=== PATIENT | female | born 1955 | race Hispanic/Latino ===

== ENCOUNTER → 2022-12-21 | Outpatient (CLI) | payer OTHER, MEDICARE ==
[~2022-12-21] MED LIST: GADOTERATE MEGLUMINE 10 MMOL/20 ML VIAL IV ONE
== END | disposition home or self-care (01) ==
LOC: RAH 09:25
PROVIDERS: ATTEND Internal Medicine Gastroenterology
DX: K74.60 Unspecified cirrhosis of liver (principal); R77.2 Abnormality of alphafetoprotein
CPT/HCPCS: 74183; A9575

== ENCOUNTER → 2023-01-14 | Outpatient (CLI) | payer OTHER, MEDICARE ==
[2023-01-14 11:46] LABS: BASOPHILS % (AUTO) 0.5 % (0.0-5.0); EOSINOPHILS % (AUTO) 2.6 % (0.0-8.0); HEMATOCRIT 26.5 % (36-48); LYMPHOCYTES % (AUTO) 29.7 % (21.0-51.0); MEAN CORPUSCULAR HEMOGLOBIN 28.5 pg (27.0-33.0); MEAN CORPUSCULAR HGB CONC 31.7 g/dL (32.0-36.0); MEAN CORPUSCULAR VOLUME 89.8 fL (79-99); MONOCYTES % (AUTO) 8.4 % (3.0-13.0); NEUTROPHILS % (AUTO) 58.5 % (40.0-77.0); PLATELET COUNT (AUTO) 169 K/uL (130-400); RED BLOOD CELL COUNT(AUTO) 2.95 MIL/uL (4.00-5.50); RED CELL DISTRIBUTION WIDTH 16.1 % (11.0-15.5); WHITE BLOOD COUNT (AUTO) 6.6 K/uL (4.8-10.8)
[2023-01-14 11:59] LABS: INR 1.15 (0.85-1.15); PROTHROMBIN TIME 12.4 SEC (9.6-11.6)
[2023-01-14 12:00] LABS: PARTIAL THROMBOPLASTIN TIME 27.4 SEC (26.3-35.5)
[2023-01-14 12:02] LABS: ALBUMIN 3.2 g/dL (3.5-5.0); CREATININE 1.1 mg/dL (0.5-1.5); POTASSIUM 3.8 mmol/L (3.5-5.1); TOTAL PROTEIN, SERUM 7.1 g/dL (6.0-8.3)
== END | disposition home or self-care (01) ==
LOC: LAB 11:18
PROVIDERS: ATTEND Internal Medicine Gastroenterology
DX: K74.60 Unspecified cirrhosis of liver (principal); R77.2 Abnormality of alphafetoprotein; R93.2 Abnormal findings on diagnostic imaging of liver and biliary tract
CPT/HCPCS: 36415; 80053; 82105; 85025; 85610; 85730

== ENCOUNTER → 2023-01-18 | Outpatient (CLI) | payer OTHER, MEDICARE ==
[~2023-01-18] MED LIST changes: -GADOTERATE MEGLUMINE 10 MMOL/20 ML VIAL IV ONE; +IOHEXOL-350 75 ML VIAL IV ONE
== END | disposition home or self-care (01) ==
LOC: RAH 07:33
PROVIDERS: ATTEND Internal Medicine Gastroenterology
DX: K74.60 Unspecified cirrhosis of liver (principal); R77.2 Abnormality of alphafetoprotein; R93.2 Abnormal findings on diagnostic imaging of liver and biliary tract
CPT/HCPCS: 74170; Q9967

== ENCOUNTER → 2023-04-02 | Outpatient (CLI) | payer OTHER, MEDICARE ==
[~2023-04-02] MED LIST changes: +GADOTERATE MEGLUMINE 10 MMOL/20 ML VIAL IV ONE; -IOHEXOL-350 75 ML VIAL IV ONE
== END | disposition home or self-care (01) ==
LOC: CANPRECLI → RAH 09:53
PROVIDERS: ATTEND Internal Medicine Gastroenterology
DX: K74.60 Unspecified cirrhosis of liver (principal); R93.2 Abnormal findings on diagnostic imaging of liver and biliary tract
CPT/HCPCS: 74183; A9575

== ENCOUNTER → 2023-06-26 | Outpatient (CLI) | payer OTHER, MEDICARE | END | disposition home or self-care (01) | LOC: RAH 09:39 | PROVIDERS: ATTEND Internal Medicine Gastroenterology | DX: K76.89 Other specified diseases of liver (principal); R93.2 Abnormal findings on diagnostic imaging of liver and biliary tract; K74.60 Unspecified cirrhosis of liver | CPT/HCPCS: 74183; A9575; S8037 ==

== ENCOUNTER 2023-07-06 05:20 | Observation (INO) | payer OTHER, MEDICARE ==
[~2023-07-06] VITALS: Ht 144.8 cm; Wt 60.3 kg
[2023-07-06 06:03] LABS: BASOPHILS # (AUTO) 0.02 K/uL (0.00-0.20); BASOPHILS % (AUTO) 0.3 % (0.0-5.0); EOSINOPHILS # (AUTO) 0.17 K/uL (0.00-0.70); EOSINOPHILS % (AUTO) 2.8 % (0.0-8.0); HEMATOCRIT 38.3 % (36-48); IMMATURE GRANULOCYTE ABSOLUTE 0.02 K/uL (0-1); LYMPHOCYTES # (AUTO) 1.9 K/uL (1.0-4.8); LYMPHOCYTES % (AUTO) 31.2 % (21.0-51.0); MEAN CORPUSCULAR HEMOGLOBIN 30.1 pg (27.0-33.0); MEAN CORPUSCULAR HGB CONC 33.4 g/dL (32.0-36.0); MEAN CORPUSCULAR VOLUME 90.1 fL (79-99); MONOCYTES # (AUTO) 0.6 K/uL (0.1-1.0); NEUTROPHILS # (AUTO) 3.5 K/uL (1.8-7.7); NEUTROPHILS % (AUTO) 56.4 % (40.0-77.0); PLATELET COUNT (AUTO) 137 K/uL (130-400); RED BLOOD CELL COUNT(AUTO) 4.25 MIL/uL (4.00-5.50); RED CELL DISTRIBUTION WIDTH 14.6 % (11.0-15.5); WHITE BLOOD COUNT (AUTO) 6.1 K/uL (4.8-10.8)
[2023-07-06 06:04] LABS: ADD UA MICROSCOPIC NO; APPEARANCE,URINE CLEAR (CLEAR); BILIRUBIN,URINE NEGATIVE (NEGATIVE); COLOR,URINE LIGHT-YELLOW (YELLOW); GLUCOSE, URINE (UA) NEGATIVE (NEGATIVE); KETONES,URINE NEGATIVE (NEGATIVE); LEUKOCYTE ESTERASE ,URINE NEGATIVE Leu/uL (NEGATIVE); NITRATE,URINE NEGATIVE (NEGATIVE); OCCULT BLOOD,URINE NEGATIVE (NEGATIVE); PROTEIN,URINE NEGATIVE (NEGATIVE); UROBILINOGEN,URINE 0.2 mg/dL (0.2-1.0)
[2023-07-06 06:15] LABS: POTASSIUM 3.3 mmol/L (3.5-5.1)
[2023-07-06 06:17] LABS: SARS-CoV-2, RNA, NAAT NEGATIVE SARS CoV-2 (NEGATIVE)
[2023-07-06 06:21] LABS: AMPHET/METH SCREEN,URINE NEGATIVE (NEGATIVE); BARBITURATE SCREEN, URINE NEGATIVE (NEGATIVE); BENZODIAZEPINES SCREEN,URINE NEGATIVE (NEGATIVE); CANNABINOID SCREEN,URINE NEGATIVE (NEGATIVE); COCAINE SCREEN,URINE NEGATIVE (NEGATIVE); OPIATE SCREEN,URINE NEGATIVE (NEGATIVE); PHENCYCLIDINE SCREEN,URINE NEGATIVE (NEGATIVE)
[2023-07-06 06:22] LABS: INFLUENZA TYPE A Negative For Type A (NEGATIVE); INFLUENZA TYPE B Negative For Type B (NEGATIVE)
[2023-07-06 06:25] LABS: ALBUMIN 3.3 g/dL (3.5-5.0); BILIRUBIN,TOTAL 1.9 mg/dL (0.2-1.0); TOTAL PROTEIN, SERUM 7.7 g/dL (6.0-8.3)
[2023-07-06] MEDS ORDERED: LACTULOSE 20 GM/30 ML UDCUP PO ONE (07:30)
[2023-07-06] MEDS ORDERED: POTASSIUM BICARB/CIT AC 25 MEQ TABLET.EFF PO ONE (07:30)
[2023-07-06] MEDS ORDERED: MAGNESIUM 2GM PREMIX 50ML 50 ML IV PRN (08:30)
[2023-07-06] MEDS ORDERED: ONDANSETRON 4MG INJ IV PRN (08:30)
[2023-07-06] MEDS ORDERED: POTASSIUM CHLORIDE 10% ELIXIR 20 MEQ/15 ML UDCUP PO PRN (08:30)
[2023-07-06] MEDS ORDERED: MORPHINE 2 MG SYG IVP PRN (08:30)
[2023-07-06] MEDS ORDERED: ACETAMINOPHEN 325 MG TAB PO PRN ×2 (08:30)
[2023-07-06] MEDS ORDERED: GLUCAGON 1MG KIT 1 MG ML IM PRN (08:30)
[2023-07-06] MEDS ORDERED: DEXTROSE 50%-WATER 50 ML DISP.SYRIN IV PRN (08:30)
[2023-07-06] MEDS ORDERED: FAMOTIDINE 20MG TAB PO SCH ×2 (09:00→21:00)
[2023-07-06] MEDS: LACTULOSE 20 GM/30 ML UDCUP PO SCH ×3 (09:00→20:58)
[2023-07-06] MEDS ORDERED: ONDANSETRON 4MG INJ IVP ONE (09:00)
[2023-07-06] MEDS ORDERED: FAMO40TA7 PO (09:10)
[2023-07-06] MEDS ORDERED: LACT10SO9 PO (09:11)
[2023-07-06] MEDS ORDERED: LEVO75CA5 PO (09:12)
[2023-07-06] MEDS ORDERED: LOSA1TAB42 PO (09:12)
[2023-07-06] MEDS ORDERED: [UNRECOGNIZED DRUG - REMARK] PO (09:14)
[2023-07-06] MEDS ORDERED: SUCR1ORA15 PO (09:16)
[2023-07-06 09:41] LABS: INR 1.25 (0.85-1.15); PROTHROMBIN TIME 14.3 SEC (9.6-11.6)
[2023-07-06 09:42] LABS: PARTIAL THROMBOPLASTIN TIME 31.4 SEC (26.3-35.5)
[2023-07-06] MEDS: 0.9%NACL 1000ML 1,000 ML IV SCH ×2 (09:44→20:58)
[2023-07-06 10:00] VITALS: BP 157/58; PULSE 59; RESP 18; O2SAT 99
[2023-07-06] MEDS: KCL 20 MEQ ERTAB PO PRN ×2 (11:16→18:40)
[2023-07-06] MEDS: INSULIN HUMULIN R 100 UNIT/ML 3ML SQ SCH ×3 (11:30→20:59)
[2023-07-06 18:00] VITALS: BP 130/70; PULSE 54; RESP 20
[2023-07-06 19:00] VITALS: BP 157/65; PULSE 60; RESP 20
[2023-07-06 19:30] VITALS: O2SAT 100
[2023-07-06 23:00] VITALS: BP 128/52; PULSE 54; RESP 19
[2023-07-07 03:00] VITALS: BP 137/80; PULSE 53; RESP 18
[2023-07-07 05:30] LABS: HEMOGLOBIN A1C 5.8 % (4.0-6.0)
[2023-07-07] MEDS: INSULIN HUMULIN R 100 UNIT/ML 3ML SQ SCH (06:35)
[2023-07-07 08:00] VITALS: BP 145/88; PULSE 55; RESP 18; O2SAT 99
[2023-07-07] MEDS: LACTULOSE 20 GM/30 ML UDCUP PO SCH (09:25)
[2023-07-07 09:39] LABS: HEMATOCRIT 31.8 % (36-48); MEAN CORPUSCULAR HEMOGLOBIN 30.5 pg (27.0-33.0); MEAN CORPUSCULAR HGB CONC 33.3 g/dL (32.0-36.0); MEAN CORPUSCULAR VOLUME 91.4 fL (79-99); RED BLOOD CELL COUNT(AUTO) 3.48 MIL/uL (4.00-5.50); WHITE BLOOD COUNT (AUTO) 5.4 K/uL (4.8-10.8)
[2023-07-07 09:49] LABS: CREATININE 0.9 mg/dL (0.5-1.5); POTASSIUM 3.4 mmol/L (3.5-5.1)
[2023-07-07 09:53] LABS: ALBUMIN 2.5 g/dL (3.5-5.0); BILIRUBIN,TOTAL 1.4 mg/dL (0.2-1.0); TOTAL PROTEIN, SERUM 6.1 g/dL (6.0-8.3)
[2023-07-07] MEDS ORDERED: LACT10SO9 PO (11:17)
[2023-07-07] MEDS ORDERED: KCL 20 MEQ ERTAB PO ONE (11:30)
[2023-07-07 11:50] VITALS: BP 135/65; PULSE 54; RESP 20
[2023-07-07] MEDS ORDERED: NON-FORMULARY MEDICATION 1 EACH (Sucralfate 1 GM) PO SCH (14:00)
[2023-07-07] MEDS ORDERED: SUCRALFATE 1 GM TABLET PO SCH (14:00)
[2023-07-08] MEDS ORDERED: LEVOTHYROXINE 75 MCG TABLET PO SCH (06:30)
[2023-07-08] MEDS ORDERED: LOSARTAN 100 MG TABLET PO SCH (09:00)
[2023-07-08] MEDS ORDERED: NON-FORMULARY MEDICATION 1 EACH (Losartan/Hydrochlorothiazide (Losartan-Hctz 100-12.5 mg T PO SCH (09:00)
[2023-07-08] MEDS ORDERED: HYDROCHLOROTHIAZIDE 25 MG TABLET PO SCH (09:00)
[2023-07-08] MEDS ORDERED: [UNRECOGNIZED DRUG - OTHER] PO SCH (09:00)
[2023-07-08] MEDS ORDERED: NON-FORMULARY MEDICATION 1 EACH (Famotidine 40 MG) PO SCH (09:00)
[2023-07-08] MEDS ORDERED: NON-FORMULARY MEDICATION 1 EACH (Levothyroxine Sodium (Levothyroxine) 75 MCG) PO SCH (09:00)
== END 2023-07-07 13:30 | disposition home or self-care (01) ==
LOC: EDH 05:20 → INTOOBSV 08:25 → EDHIP 08:25 → 3DH 09:50
PROVIDERS: ADMIT Hospitalist; ATTEND Hospitalist
DX: K76.82 Hepatic encephalopathy (principal); Z20.822 Contact with and (suspected) exposure to COVID-19; E87.6 Hypokalemia; I10 Essential (primary) hypertension; E11.65 Type 2 diabetes mellitus with hyperglycemia; K74.60 Unspecified cirrhosis of liver; E87.20 Acidosis, unspecified; E66.3 Overweight; R41.82 Altered mental status, unspecified; E78.00 Pure hypercholesterolemia, unspecified; Z68.28 Body mass index [BMI] 28.0-28.9, adult; Z79.899 Other long term (current) drug therapy; Z98.890 Other specified postprocedural states
CPT/HCPCS: 96361 ×3; 99285; 96374; 70450; 71045; 87635; 81003; 82550; 83874; 84484; 80053 ×2; 80305; 82140 ×2; 83690; 85025; 85610; 85730; 87040 ×2; 87804 ×2; 82948 ×5; 83605 ×2; 36415 ×2; 93005; 83036; 85027; C9803; J7030; J2405; G0378

== ENCOUNTER 2023-08-20 13:38 | Observation (INO) | payer OTHER, MEDICARE ==
[~2023-08-20] VITALS: Ht 144.8 cm; Wt 61.6 kg
[~2023-08-20 13:38] MED LIST changes: +FAMO40TA7 PO; -GADOTERATE MEGLUMINE 10 MMOL/20 ML VIAL IV ONE; +LACT10SO9 PO; +LEVO75CA5 PO; +LOSA1TAB42 PO; +SUCR1ORA15 PO; +[UNRECOGNIZED DRUG - REMARK] PO
[2023-08-20 14:10] LABS: HEMATOCRIT 35.2 % (36-48); MEAN CORPUSCULAR HEMOGLOBIN 30.7 pg (27.0-33.0); MEAN CORPUSCULAR HGB CONC 33.5 g/dL (32.0-36.0); MEAN CORPUSCULAR VOLUME 91.7 fL (79-99); RED BLOOD CELL COUNT(AUTO) 3.84 MIL/uL (4.00-5.50); RED CELL DISTRIBUTION WIDTH 14.4 % (11.0-15.5); WHITE BLOOD COUNT (AUTO) 6.7 K/uL (4.8-10.8)
[2023-08-20 14:20] LABS: CREATININE 0.9 mg/dL (0.5-1.5); POTASSIUM 3.7 mmol/L (3.5-5.1)
[2023-08-20 14:24] LABS: ALBUMIN 2.9 g/dL (3.5-5.0); BILIRUBIN,TOTAL 1.3 mg/dL (0.2-1.0); TOTAL PROTEIN, SERUM 7.5 g/dL (6.0-8.3)
[2023-08-20] MEDS ORDERED: HYDRALAZINE 20MG/ML VIAL IV ONE (15:00)
[2023-08-20] MEDS ORDERED: ONDANSETRON 4MG INJ IV PRN (16:30)
[2023-08-20] MEDS ORDERED: GUAIFENESIN-DM 200/20 MG 10 ML PO PRN (16:30)
[2023-08-20] MEDS ORDERED: HYDRALAZINE 20MG/ML VIAL IV PRN (16:30)
[2023-08-20] MEDS ORDERED: ACETAMINOPHEN 325 MG TAB PO PRN (16:30)
[2023-08-20] MEDS ORDERED: DIPHENHYDRAMINE HCL 25 MG CAPSULE PO PRN (16:30)
[2023-08-20] MEDS ORDERED: NITROGLYCERIN 0.4 MG SL TAB SL PRN (16:30)
[2023-08-20] MEDS ORDERED: MAG/ALUM/SIMETH 30 ML UDCUP PO PRN (16:30)
[2023-08-20] MEDS ORDERED: ACETAMINOPHEN WITH CODEINE 1 TAB TAB PO PRN (16:30)
[2023-08-20] MEDS ORDERED: ZOLPIDEM TARTRATE 5 MG TAB PO PRN (16:30)
[2023-08-20] MEDS: LACTULOSE 20 GM/30 ML UDCUP PO SCH ×2 (17:34→22:25)
[2023-08-20 19:10] VITALS: BP 148/74; PULSE 73; RESP 20
[2023-08-20 19:59] VITALS: O2SAT 98
[2023-08-20] MEDS: FAMOTIDINE 20MG VIAL IV SCH (22:25)
[2023-08-20] MEDS ORDERED: OLME-11 PO (22:43)
[2023-08-20] MEDS ORDERED: OMEP20CA12 PO (22:44)
[2023-08-21 00:10] VITALS: BP 148/78; PULSE 74; RESP 20
[2023-08-21 03:10] VITALS: BP 128/52; PULSE 61; RESP 18
[2023-08-21 07:27] LABS: MEAN CORPUSCULAR HEMOGLOBIN 30.9 pg (27.0-33.0); MEAN CORPUSCULAR HGB CONC 33.1 g/dL (32.0-36.0); MEAN CORPUSCULAR VOLUME 93.3 fL (79-99); RED BLOOD CELL COUNT(AUTO) 3.43 MIL/uL (4.00-5.50); RED CELL DISTRIBUTION WIDTH 14.6 % (11.0-15.5); WHITE BLOOD COUNT (AUTO) 5.7 K/uL (4.8-10.8)
[2023-08-21 07:37] LABS: POTASSIUM 3.4 mmol/L (3.5-5.1)
[2023-08-21 07:39] VITALS: BP 155/58; PULSE 57; RESP 20
[2023-08-21 07:44] LABS: ALBUMIN 2.4 g/dL (3.5-5.0); BILIRUBIN,DIRECT 0.6 mg/dL (0.0-0.3); BILIRUBIN,TOTAL 1.5 mg/dL (0.2-1.0); MAGNESIUM 1.9 mg/dL (1.80-2.40); TOTAL PROTEIN, SERUM 6.4 g/dL (6.0-8.3)
[2023-08-21] MEDS: FAMOTIDINE 20MG VIAL IV SCH (08:37)
[2023-08-21] MEDS: LACTULOSE 20 GM/30 ML UDCUP PO SCH (08:37)
[2023-08-21] MEDS ORDERED: LACT10SO9 PO (08:59)
[2023-08-21] MEDS ORDERED: RIFA550T PO (08:59)
[2023-08-21] MEDS ORDERED: KCL 20 MEQ ERTAB PO ONE (09:00)
== END 2023-08-21 12:12 | disposition home or self-care (01) ==
LOC: EDH 13:38 → INTOOBSV 16:29 → EDHIP 16:29 → 2AH 20:20
PROVIDERS: ADMIT Hospitalist; ATTEND Hospitalist
DX: K76.82 Hepatic encephalopathy (principal); E72.20 Disorder of urea cycle metabolism, unspecified; E73.9 Lactose intolerance, unspecified; E11.9 Type 2 diabetes mellitus without complications; E78.00 Pure hypercholesterolemia, unspecified; I10 Essential (primary) hypertension; D50.9 Iron deficiency anemia, unspecified; K74.60 Unspecified cirrhosis of liver
CPT/HCPCS: 99285; 96374; 70450; 96375; 84484; 80053 ×2; 82140 ×2; 85027 ×2; 82948; 36415 ×2; 93005; 96376; 83735; 80076; J3490 ×2; J0360; G0378

== ENCOUNTER 2023-12-30 11:04 | Inpatient (IN) | payer OTHER, MEDICARE ==
[~2023-12-30] VITALS: Ht 144.8 cm; Wt 59.0 kg
[~2023-12-30 11:04] MED LIST changes: -FAMO40TA7 PO; -LOSA1TAB42 PO; +OLME-11 PO; +OMEP20CA12 PO; +RIFA550T PO; -SUCR1ORA15 PO
[2023-12-30 11:46] LABS: BASOPHILS # (AUTO) 0.02 K/uL (0.00-0.20); BASOPHILS % (AUTO) 0.4 % (0.0-5.0); EOSINOPHILS # (AUTO) 0.14 K/uL (0.00-0.70); EOSINOPHILS % (AUTO) 2.6 % (0.0-8.0); HEMATOCRIT 34.1 % (36-48); IMMATURE GRANULOCYTE ABSOLUTE 0.03 K/uL (0-1); LYMPHOCYTES # (AUTO) 1.4 K/uL (1.0-4.8); LYMPHOCYTES % (AUTO) 26.6 % (21.0-51.0); MEAN CORPUSCULAR HEMOGLOBIN 29.7 pg (27.0-33.0); MEAN CORPUSCULAR HGB CONC 33.1 g/dL (32.0-36.0); MEAN CORPUSCULAR VOLUME 89.5 fL (79-99); MONOCYTES # (AUTO) 0.6 K/uL (0.1-1.0); MONOCYTES % (AUTO) 10.2 % (3.0-13.0); NEUTROPHILS # (AUTO) 3.2 K/uL (1.8-7.7); NEUTROPHILS % (AUTO) 59.6 % (40.0-77.0); PLATELET COUNT (AUTO) 123 K/uL (130-400); RED BLOOD CELL COUNT(AUTO) 3.81 MIL/uL (4.00-5.50); RED CELL DISTRIBUTION WIDTH 14.6 % (11.0-15.5); WHITE BLOOD COUNT (AUTO) 5.4 K/uL (4.8-10.8)
[2023-12-30 11:59] LABS: CREATININE 0.9 mg/dL (0.5-1.5); POTASSIUM 3.6 mmol/L (3.5-5.1)
[2023-12-30 12:03] LABS: ALBUMIN 2.7 g/dL (3.5-5.0); BILIRUBIN,TOTAL 1.2 mg/dL (0.2-1.0); MAGNESIUM 2.1 mg/dL (1.80-2.40); TOTAL PROTEIN, SERUM 6.9 g/dL (6.0-8.3)
[2023-12-30 12:32] LABS: BILIRUBIN,URINE NEGATIVE (NEGATIVE); COLOR,URINE YELLOW (YELLOW); GLUCOSE, URINE (UA) NEGATIVE (NEGATIVE); KETONES,URINE 5 mg/dL (NEGATIVE); LEUKOCYTE ESTERASE ,URINE SMALL Leu/uL (NEGATIVE); NITRATE,URINE POSITIVE (NEGATIVE); OCCULT BLOOD,URINE NEGATIVE (NEGATIVE); PROTEIN,URINE NEGATIVE (NEGATIVE); UROBILINOGEN,URINE 0.2 mg/dL (0.2-1.0)
[2023-12-30 12:45] LABS: ADD UA MICROSCOPIC YES
[2023-12-30 12:46] LABS: APPEARANCE,URINE HAZY (CLEAR)
[2023-12-30 12:50] LABS: BACTERIA,URINE Many /HPF (None Seen); RBC,URINE 0-1 /HPF (0-1); SQUAMOUS EPITHELIAL CELL,UR Rare /HPF (0-2); WBC,URINE 0-1 /HPF (0-1)
[2023-12-30] MEDS ORDERED: LEVO50 PO (13:31)
[2023-12-30] MEDS ORDERED: LOSA1TAB42 PO (13:31)
[2023-12-30] MEDS ORDERED: GLUCAGON 1MG KIT 1 MG ML IM PRN (14:00)
[2023-12-30] MEDS ORDERED: ONDANSETRON 4MG INJ IV PRN (14:00)
[2023-12-30] MEDS ORDERED: CEFTRIAXONE 1G VIAL 1 GM in 0.9%NACL 50ML 50 ML IV SCH (14:00)
[2023-12-30] MEDS ORDERED: GUAIFENESIN-DM 200/20 MG 10 ML PO PRN (14:00)
[2023-12-30] MEDS ORDERED: ACETAMINOPHEN 325 MG TAB PO PRN (14:00)
[2023-12-30] MEDS ORDERED: MAG/ALUM/SIMETH 30 ML UDCUP PO PRN (14:00)
[2023-12-30] MEDS ORDERED: ACETAMINOPHEN WITH CODEINE 1 TAB TAB PO PRN (14:00)
[2023-12-30] MEDS ORDERED: DIPHENHYDRAMINE HCL 25 MG CAPSULE PO PRN (14:00)
[2023-12-30] MEDS ORDERED: NITROGLYCERIN 0.4 MG SL TAB SL PRN (14:00)
[2023-12-30] MEDS ORDERED: DEXTROSE 50%-WATER 50 ML DISP.SYRIN IV PRN (14:00)
[2023-12-30] MEDS: CEFTRIAXONE 1G VIAL IVPB SCH (14:06)
[2023-12-30] MEDS: LACTULOSE 20 GM/30 ML UDCUP PO SCH (14:06)
[2023-12-30] MEDS: INSULIN HUMULIN R 100 UNIT/ML 3ML SQ SCH (16:30)
[2023-12-30] MEDS: FAMOTIDINE 20MG VIAL IV SCH (20:27)
[2023-12-31] MEDS: HYDRALAZINE 20MG/ML VIAL IV PRN (01:44)
[2023-12-31] MEDS: ENOXAPARIN SODIUM 40 MG/0.4 ML SYRINGE SQ SCH (09:10)
[2023-12-31 20:28] VITALS: BP 168/67; PULSE 70; RESP 18
[2023-12-31 20:30] VITALS: O2SAT 99
[2023-12-31 23:59] VITALS: BP 131/55; PULSE 58; RESP 19
[2024-01-01 05:01] VITALS: BP 157/61; PULSE 57; RESP 18
[2024-01-01 07:09] LABS: BASOPHILS # (AUTO) 0.02 K/uL (0.00-0.20); BASOPHILS % (AUTO) 0.4 % (0.0-5.0); EOSINOPHILS # (AUTO) 0.16 K/uL (0.00-0.70); EOSINOPHILS % (AUTO) 3.5 % (0.0-8.0); HEMATOCRIT 29.6 % (36-48); IMMATURE GRANULOCYTE ABSOLUTE 0.01 K/uL (0-1); LYMPHOCYTES # (AUTO) 1.5 K/uL (1.0-4.8); LYMPHOCYTES % (AUTO) 31.8 % (21.0-51.0); MEAN CORPUSCULAR HEMOGLOBIN 29.6 pg (27.0-33.0); MEAN CORPUSCULAR HGB CONC 33.4 g/dL (32.0-36.0); MEAN CORPUSCULAR VOLUME 88.4 fL (79-99); MONOCYTES # (AUTO) 0.6 K/uL (0.1-1.0); MONOCYTES % (AUTO) 13.5 % (3.0-13.0); NEUTROPHILS # (AUTO) 2.3 K/uL (1.8-7.7); NEUTROPHILS % (AUTO) 50.6 % (40.0-77.0); PLATELET COUNT (AUTO) 105 K/uL (130-400); RED BLOOD CELL COUNT(AUTO) 3.35 MIL/uL (4.00-5.50); RED CELL DISTRIBUTION WIDTH 14.7 % (11.0-15.5); WHITE BLOOD COUNT (AUTO) 4.6 K/uL (4.8-10.8)
[2024-01-01 07:26] LABS: ALBUMIN 2.3 g/dL (3.5-5.0); BILIRUBIN,TOTAL 1.5 mg/dL (0.2-1.0); CREATININE 0.7 mg/dL (0.5-1.5); POTASSIUM 3.1 mmol/L (3.5-5.1)
[2024-01-01 08:00] VITALS: BP 147/60; PULSE 59; RESP 20; O2SAT 99
[2024-01-01 12:00] VITALS: BP 168/58; PULSE 54; RESP 18
[2024-01-01] MEDS ORDERED: KCL 20 MEQ ERTAB PO PRN (14:00)
[2024-01-01] MEDS ORDERED: POTASSIUM CHLORIDE 20MEQ/100ML 100 ML IV PRN (14:00)
[2024-01-01] MEDS ORDERED: POTASSIUM CHLORIDE 10% ELIXIR 20 MEQ/15 ML UDCUP PO PRN (14:00)
[2024-01-01] MEDS ORDERED: LACT PO (14:11)
[2024-01-01] MEDS ORDERED: LEVO-70 PO (14:13)
[2024-01-01] MEDS: POTASSIUM CHLORIDE 10% ELIXIR 20 MEQ/15 ML UDCUP PO ONE (14:33)
[2024-01-01 16:00] VITALS: BP 166/68; PULSE 55; RESP 18
== END 2024-01-01 16:00 | disposition home or self-care (01) | DRG 442 ==
LOC: EDH 11:04 → EDHIP 13:52 → WSH 12-31 16:27 → EDHIP 12-31 16:36 → WSH 12-31 20:07
PROVIDERS: ADMIT Internal Medicine; ATTEND Internal Medicine
DX: K76.82 Hepatic encephalopathy (principal); N39.0 Urinary tract infection, site not specified; E11.9 Type 2 diabetes mellitus without complications; E78.00 Pure hypercholesterolemia, unspecified; I10 Essential (primary) hypertension; K74.60 Unspecified cirrhosis of liver; Z91.199 Patient's noncompliance with other medical treatment and regimen due to unspecified reason
CPT/HCPCS: 36415; 80053; 81001; 82140; 82948; 83735; 85025; 87077; 87088; 87186; 93005; G0378; J0360; J0696; J1650; J3490

== ENCOUNTER → 2024-03-04 | Outpatient (CLI) | payer OTHER, MEDICARE ==
[~2024-03-04] MED LIST changes: +LACT PO; +LEVO-70 PO; +LEVO50 PO; -LEVO75CA5 PO; +LOSA1TAB42 PO; -OLME-11 PO
[2024-03-04 16:27] LABS: ALBUMIN 2.6 g/dL (3.5-5.0); CREATININE 0.8 mg/dL (0.5-1.0); POTASSIUM 3.9 mmol/L (3.5-5.1); TOTAL PROTEIN, SERUM 6.7 g/dL (6.0-8.3)
== END | disposition home or self-care (01) ==
LOC: LAB 15:11
PROVIDERS: ATTEND Internal Medicine Gastroenterology
DX: R93.2 Abnormal findings on diagnostic imaging of liver and biliary tract (principal)
CPT/HCPCS: 36415; 80053

== ENCOUNTER → 2024-03-09 | Outpatient (CLI) | payer OTHER, MEDICARE ==
[~2024-03-09] MED LIST changes: +IOHEXOL 350 MG/ML 100ML INFUS..BTL IV ONE
== END | disposition home or self-care (01) ==
LOC: RAH 10:08
PROVIDERS: ATTEND Internal Medicine Gastroenterology
DX: K76.89 Other specified diseases of liver (principal); R93.2 Abnormal findings on diagnostic imaging of liver and biliary tract; R16.1 Splenomegaly, not elsewhere classified; R16.0 Hepatomegaly, not elsewhere classified
CPT/HCPCS: 74170; Q9967

== ENCOUNTER 2024-04-28 14:24 | Day surgery (SDC) | payer OTHER, MEDICARE ==
[2024-04-28 09:51] LABS: BASOPHILS # (AUTO) 0.02 K/uL (0.00-0.20); BASOPHILS % (AUTO) 0.4 % (0.0-5.0); EOSINOPHILS # (AUTO) 0.11 K/uL (0.00-0.70); EOSINOPHILS % (AUTO) 2.2 % (0.0-8.0); HEMATOCRIT 38.3 % (36-48); IMMATURE GRANULOCYTE ABSOLUTE 0.02 K/uL (0-1); LYMPHOCYTES # (AUTO) 1.5 K/uL (1.0-4.8); MEAN CORPUSCULAR HEMOGLOBIN 28.7 pg (27.0-33.0); MEAN CORPUSCULAR HGB CONC 32.6 g/dL (32.0-36.0); MEAN CORPUSCULAR VOLUME 87.8 fL (79-99); MONOCYTES # (AUTO) 0.4 K/uL (0.1-1.0); MONOCYTES % (AUTO) 8.9 % (3.0-13.0); NEUTROPHILS # (AUTO) 2.8 K/uL (1.8-7.7); NEUTROPHILS % (AUTO) 57.1 % (40.0-77.0); PLATELET COUNT (AUTO) 145 K/uL (130-400); RED BLOOD CELL COUNT(AUTO) 4.36 MIL/uL (4.00-5.50); RED CELL DISTRIBUTION WIDTH 14.8 % (11.0-15.5)
[2024-04-28 10:06] LABS: INR 1.18 (0.85-1.15); PROTHROMBIN TIME 12.6 SEC (9.6-11.6)
[2024-04-28 10:07] LABS: BILIRUBIN,TOTAL 1.6 mg/dL (0.2-1.0); CREATININE 0.8 mg/dL (0.5-1.0); PARTIAL THROMBOPLASTIN TIME 29.6 SEC (26.3-35.5); TOTAL PROTEIN, SERUM 7.7 g/dL (6.0-8.3)
[2024-04-28] MEDS: 0.9%NACL 1000ML 1,000 ML IV ONE (10:22)
[2024-04-28 12:45] VITALS: BP 131/62; PULSE 67; RESP 15
[2024-04-28 13:00] VITALS: BP 142/52; PULSE 62; RESP 14
[2024-04-28 13:15] VITALS: BP 143/45; PULSE 60; RESP 15
[2024-04-28 13:30] VITALS: BP 137/47; PULSE 56; RESP 15
[2024-04-28 13:45] VITALS: BP 149/54; PULSE 58; RESP 16
[2024-04-28 14:15] VITALS: BP 150/50; PULSE 62; RESP 15
[~2024-04-28 14:24] MED LIST changes: +FENTANYL CITRATE PF 50 MCG/1 ML 2ML VIAL ONE; -IOHEXOL 350 MG/ML 100ML INFUS..BTL IV ONE; +MIDAZOLAM HCL 1 MG/ML 2ML VIAL ONE
== END 2024-04-28 14:25 | disposition home or self-care (01) ==
LOC: DAH 14:24
PROVIDERS: ATTEND Internal Medicine Hematology & Oncology
DX: K74.69 Other cirrhosis of liver (principal); K76.0 Fatty (change of) liver, not elsewhere classified; G47.9 Sleep disorder, unspecified; R63.4 Abnormal weight loss; R53.83 Other fatigue; E03.9 Hypothyroidism, unspecified; M85.80 Other specified disorders of bone density and structure, unspecified site; K64.9 Unspecified hemorrhoids; I10 Essential (primary) hypertension; K29.70 Gastritis, unspecified, without bleeding; R94.5 Abnormal results of liver function studies; K76.89 Other specified diseases of liver; N28.1 Cyst of kidney, acquired; M54.50 Low back pain, unspecified; M79.10 Myalgia, unspecified site; M25.50 Pain in unspecified joint; D50.9 Iron deficiency anemia, unspecified; R93.3 Abnormal findings on diagnostic imaging of other parts of digestive tract; R35.1 Nocturia; R35.0 Frequency of micturition; Z83.3 Family history of diabetes mellitus; Z82.49 Family history of ischemic heart disease and other diseases of the circulatory system; Z86.010 Personal history of colon polyps; Z79.899 Other long term (current) drug therapy; Z79.890 Hormone replacement therapy
CPT/HCPCS: 47000; 80053; 85025; 85610; 85730; 36415; 88313; 88307; 88342; 76705; 88341; 76942; A4663; J3010; J7030; J2250; C2615; A4215; A4223; A4222; A4221; 99151; 99153

== ENCOUNTER 2024-07-11 12:00 | Inpatient (IN) | payer OTHER, MEDICARE ==
[~2024-07-11] VITALS: Ht 144.8 cm; Wt 63.0 kg
[~2024-07-11 12:00] MED LIST changes: -FENTANYL CITRATE PF 50 MCG/1 ML 2ML VIAL ONE; -LACT10SO9 PO; -LEVO-70 PO; -MIDAZOLAM HCL 1 MG/ML 2ML VIAL ONE; -RIFA550T PO; -[UNRECOGNIZED DRUG - REMARK] PO
[2024-07-11 12:57] LABS: BASOPHILS # (AUTO) 0.02 K/uL (0.00-0.20); BASOPHILS % (AUTO) 0.2 % (0.0-5.0); EOSINOPHILS # (AUTO) 0.08 K/uL (0.00-0.70); EOSINOPHILS % (AUTO) 0.7 % (0.0-8.0); HEMATOCRIT 35.8 % (36-48); IMMATURE GRANULOCYTE ABSOLUTE 0.12 K/uL (0-1); LYMPHOCYTES # (AUTO) 1.4 K/uL (1.0-4.8); LYMPHOCYTES % (AUTO) 11.8 % (21.0-51.0); MEAN CORPUSCULAR HEMOGLOBIN 29.9 pg (27.0-33.0); MEAN CORPUSCULAR HGB CONC 33.5 g/dL (32.0-36.0); MEAN CORPUSCULAR VOLUME 89.1 fL (79-99); MONOCYTES # (AUTO) 1.8 K/uL (0.1-1.0); MONOCYTES % (AUTO) 15.4 % (3.0-13.0); NEUTROPHILS # (AUTO) 8.4 K/uL (1.8-7.7); NEUTROPHILS % (AUTO) 70.9 % (40.0-77.0); PLATELET COUNT (AUTO) 108 K/uL (130-400); RED BLOOD CELL COUNT(AUTO) 4.02 MIL/uL (4.00-5.50); RED CELL DISTRIBUTION WIDTH 15.8 % (11.0-15.5); WHITE BLOOD COUNT (AUTO) 11.9 K/uL (4.8-10.8)
[2024-07-11 13:14] LABS: ALBUMIN 2.8 g/dL (3.5-5.0); BILIRUBIN,TOTAL 2.5 mg/dL (0.2-1.0); POTASSIUM 3.1 mmol/L (3.5-5.1); TOTAL PROTEIN, SERUM 6.7 g/dL (6.0-8.3)
[2024-07-11] MEDS ORDERED: IOHEXOL-350 75 ML VIAL IV ONE (14:02)
[2024-07-11 16:26] LABS: APPEARANCE,URINE CLOUDY (CLEAR); BILIRUBIN,URINE NEGATIVE (NEGATIVE); COLOR,URINE LIGHT-YELLOW (YELLOW); GLUCOSE, URINE (UA) NEGATIVE (NEGATIVE); KETONES,URINE NEGATIVE (NEGATIVE); LEUKOCYTE ESTERASE ,URINE NEGATIVE Leu/uL (NEGATIVE); NITRATE,URINE NEGATIVE (NEGATIVE); OCCULT BLOOD,URINE NEGATIVE (NEGATIVE); PROTEIN,URINE NEGATIVE (NEGATIVE); UROBILINOGEN,URINE 0.2 mg/dL (0.2-1.0)
[2024-07-11 16:31] LABS: ADD UA MICROSCOPIC YES
[2024-07-11 16:33] LABS: BACTERIA,URINE RARE /HPF (None Seen); MUCUS,URINE MANY LPF (None Seen); SQUAMOUS EPITHELIAL CELL,UR FEW /HPF (0-2)
[2024-07-11] MEDS: POTASSIUM BICARB/CIT AC 25 MEQ TABLET.EFF PO ONE (17:11)
[2024-07-11] MEDS: 0.9%NACL 1000ML 1,000 ML IV ONE (17:11)
[2024-07-11] MEDS: 0.9%NACL 1000ML 1,000 ML IV SCH (18:05)
[2024-07-11 18:21] LABS: HEMOGLOBIN A1C 5.2 % (4.0-6.0)
[2024-07-11 18:22] LABS: INR 1.27 (0.85-1.15); PROTHROMBIN TIME 13.5 SEC (9.6-11.6)
[2024-07-11 18:23] LABS: PARTIAL THROMBOPLASTIN TIME 27.6 SEC (26.3-35.5)
[2024-07-11 18:27] LABS: ABG BASE EXCESS -2.1 mmol/L (-2.0-3.0); ABG HCO3 19.7 mmol/L (21.0-28.0); ABG OXYGEN SATURATION 95.6 % (94.0-98.0); ABG PCO2 26 mmHg (32-45); ABG PH 7.503 (7.350-7.450); CARBON MONOXIDE 0.5 % (0.5-1.5); DEVICE COMMENT ROOM AIR; HHb 4.4; PO2, ARTERIAL BG 79.8 mmHg (83.0-108.0); VENT MODE, BG RIGHT RADIAL RN (ROOM AIR)
[2024-07-11 18:30] LABS: ACETAMINOPHEN < 1 mcg/mL (10-30); SALICYLATE < 2.8 mg/dL (2.8-20.0)
[2024-07-11 18:39] LABS: THYROID STIMULATING HORMONE 1.72 uIU/mL (0.36-3.74)
[2024-07-11 18:43] LABS: AMPHET/METH SCREEN,URINE NEGATIVE (NEGATIVE); BARBITURATE SCREEN, URINE NEGATIVE (NEGATIVE); BENZODIAZEPINES SCREEN,URINE NEGATIVE (NEGATIVE); CANNABINOID SCREEN,URINE NEGATIVE (NEGATIVE); COCAINE SCREEN,URINE NEGATIVE (NEGATIVE); OPIATE SCREEN,URINE NEGATIVE (NEGATIVE); PHENCYCLIDINE SCREEN,URINE NEGATIVE (NEGATIVE)
[2024-07-11 18:44] LABS: ALBUMIN 2.5 g/dL (3.5-5.0); BILIRUBIN,DIRECT 0.8 mg/dL (0.0-0.3); BILIRUBIN,TOTAL 2.3 mg/dL (0.2-1.0); TOTAL PROTEIN, SERUM 5.8 g/dL (6.0-8.3)
[2024-07-11] MEDS ORDERED: 0.9%NACL 50ML IV SCH (19:30)
[2024-07-11] MEDS: ZOSYN 3.375GM +NS 50ML IVPB SCH (20:03)
[2024-07-12 08:05] LABS: BASOPHILS # (AUTO) 0.01 K/uL (0.00-0.20); BASOPHILS % (AUTO) 0.1 % (0.0-5.0); EOSINOPHILS # (AUTO) 0.06 K/uL (0.00-0.70); EOSINOPHILS % (AUTO) 0.7 % (0.0-8.0); HEMATOCRIT 30.8 % (36-48); IMMATURE GRANULOCYTE ABSOLUTE 0.07 K/uL (0-1); LYMPHOCYTES # (AUTO) 1.3 K/uL (1.0-4.8); LYMPHOCYTES % (AUTO) 14.9 % (21.0-51.0); MEAN CORPUSCULAR HEMOGLOBIN 29.3 pg (27.0-33.0); MEAN CORPUSCULAR HGB CONC 33.4 g/dL (32.0-36.0); MEAN CORPUSCULAR VOLUME 87.5 fL (79-99); MONOCYTES # (AUTO) 1.3 K/uL (0.1-1.0); NEUTROPHILS # (AUTO) 5.7 K/uL (1.8-7.7); NEUTROPHILS % (AUTO) 67.5 % (40.0-77.0); PLATELET COUNT (AUTO) 79 K/uL (130-400); RED BLOOD CELL COUNT(AUTO) 3.52 MIL/uL (4.00-5.50); RED CELL DISTRIBUTION WIDTH 15.8 % (11.0-15.5); WHITE BLOOD COUNT (AUTO) 8.4 K/uL (4.8-10.8)
[2024-07-12 08:23] LABS: ALBUMIN 2.1 g/dL (3.5-5.0); CREATININE 0.8 mg/dL (0.5-1.0); POTASSIUM 3.1 mmol/L (3.5-5.1); TOTAL PROTEIN, SERUM 5.4 g/dL (6.0-8.3)
[2024-07-12] MEDS: LACTULOSE 20 GM/30 ML UDCUP PO SCH (09:27)
[2024-07-12] MEDS: KCL 20 MEQ ERTAB PO PRN (09:27)
[2024-07-12 12:23] VITALS: BP 146/54; PULSE 69; RESP 19; TEMP 99.6
[2024-07-12 13:38] VITALS: O2SAT 97
[2024-07-12 15:45] LABS: HEMATOCRIT 36.3 % (36-48)
[2024-07-12 16:00] VITALS: BP 169/63; PULSE 64; RESP 18; TEMP 100.2
[2024-07-12] MEDS: POTASSIUM CHLORIDE 10% ELIXIR 20 MEQ/15 ML UDCUP PO PRN (17:45)
[2024-07-12 20:00] VITALS: BP 151/70; PULSE 68; RESP 20; TEMP 99.1
[2024-07-12 20:11] VITALS: O2SAT 98
[2024-07-12 20:54] LABS: HEMATOCRIT 33.7 % (36-48)
[2024-07-12] MEDS: PANTOPRAZOLE 40 MG/VIAL IVP SCH (21:10)
[2024-07-13] VITALS (7 sets, daily range): BP systolic 139–162; BP diastolic 49–72; PULSE 57–65; RESP 16–20; TEMP 98.3–100.6; O2SAT 96–99
[2024-07-13 03:39] LABS: BASOPHILS # (AUTO) 0.01 K/uL (0.00-0.20); BASOPHILS % (AUTO) 0.1 % (0.0-5.0); EOSINOPHILS # (AUTO) 0.08 K/uL (0.00-0.70); HEMATOCRIT 30.1 % (36-48); IMMATURE GRANULOCYTE ABSOLUTE 0.08 K/uL (0-1); LYMPHOCYTES # (AUTO) 1.1 K/uL (1.0-4.8); LYMPHOCYTES % (AUTO) 13.5 % (21.0-51.0); MEAN CORPUSCULAR HEMOGLOBIN 29.9 pg (27.0-33.0); MEAN CORPUSCULAR HGB CONC 33.9 g/dL (32.0-36.0); MEAN CORPUSCULAR VOLUME 88.3 fL (79-99); MONOCYTES # (AUTO) 1.1 K/uL (0.1-1.0); MONOCYTES % (AUTO) 13.7 % (3.0-13.0); NEUTROPHILS # (AUTO) 5.5 K/uL (1.8-7.7); NEUTROPHILS % (AUTO) 70.7 % (40.0-77.0); PLATELET COUNT (AUTO) 74 K/uL (130-400); RED BLOOD CELL COUNT(AUTO) 3.41 MIL/uL (4.00-5.50); RED CELL DISTRIBUTION WIDTH 15.5 % (11.0-15.5); WHITE BLOOD COUNT (AUTO) 7.8 K/uL (4.8-10.8)
[2024-07-13 03:55] LABS: BILIRUBIN,TOTAL 2.4 mg/dL (0.2-1.0); CREATININE 0.7 mg/dL (0.5-1.0); POTASSIUM 3.8 mmol/L (3.5-5.1); TOTAL PROTEIN, SERUM 5.5 g/dL (6.0-8.3)
[2024-07-13 05:17] LABS: HEPATITIS A IGM ANTIBODY Non-Reactive (Nonreactive); HEPATITIS B CORE IGM ANTIBODY Non-Reactive (Negative); HEPATITIS B SURFACE ANTIGEN Non-Reactive (Nonreactive); HEPATITIS C ANTIBODY Non-Reactive (Nonreactive)
[2024-07-13 09:10] LABS: HEMATOCRIT 31.3 % (36-48)
[2024-07-13] MEDS: hydroCHLOROthiazide 25 MG TABLET PO SCH (13:52)
[2024-07-13] MEDS: LoSARTan 100 MG TABLET PO SCH (13:52)
[2024-07-13 15:11] LABS: HEMATOCRIT 32.1 % (36-48)
[2024-07-13 21:24] LABS: HEMATOCRIT 31.8 % (36-48)
[2024-07-14] VITALS: BP 151/55; PULSE 58; RESP 18; TEMP 98.6
[2024-07-14 04:00] VITALS: BP 141/59; PULSE 61; RESP 17; TEMP 99.1
[2024-07-14 05:35] LABS: BASOPHILS # (AUTO) 0.01 K/uL (0.00-0.20); BASOPHILS % (AUTO) 0.1 % (0.0-5.0); EOSINOPHILS # (AUTO) 0.09 K/uL (0.00-0.70); EOSINOPHILS % (AUTO) 1.3 % (0.0-8.0); HEMATOCRIT 30.3 % (36-48); IMMATURE GRANULOCYTE ABSOLUTE 0.07 K/uL (0-1); LYMPHOCYTES # (AUTO) 0.9 K/uL (1.0-4.8); LYMPHOCYTES % (AUTO) 13.8 % (21.0-51.0); MEAN CORPUSCULAR HEMOGLOBIN 29.4 pg (27.0-33.0); MEAN CORPUSCULAR HGB CONC 32.7 g/dL (32.0-36.0); MEAN CORPUSCULAR VOLUME 89.9 fL (79-99); MONOCYTES % (AUTO) 15.2 % (3.0-13.0); NEUTROPHILS # (AUTO) 4.6 K/uL (1.8-7.7); NEUTROPHILS % (AUTO) 68.6 % (40.0-77.0); PLATELET COUNT (AUTO) 84 K/uL (130-400); RED BLOOD CELL COUNT(AUTO) 3.37 MIL/uL (4.00-5.50); RED CELL DISTRIBUTION WIDTH 15.1 % (11.0-15.5); WHITE BLOOD COUNT (AUTO) 6.8 K/uL (4.8-10.8)
[2024-07-14 06:05] LABS: ALBUMIN 1.8 g/dL (3.5-5.0); BILIRUBIN,TOTAL 1.9 mg/dL (0.2-1.0); CREATININE 0.8 mg/dL (0.5-1.0); MAGNESIUM 1.7 mg/dL (1.80-2.40); PHOSPHORUS 2.8 mg/dL (2.5-4.9); TOTAL PROTEIN, SERUM 5.3 g/dL (6.0-8.3)
[2024-07-14] MEDS: POTASSIUM CHLORIDE 20MEQ/100ML 100 ML IV PRN (06:21)
[2024-07-14] MEDS: levoTHYROxine 50 MCG TABLET PO SCH (06:39)
[2024-07-14 08:00] VITALS: BP 144/58; PULSE 64; RESP 18; TEMP 99.1
[2024-07-14 08:13] VITALS: O2SAT 98
[2024-07-14] MEDS ORDERED: NON-FORMULARY MEDICATION 1 EACH (Losartan/Hydrochlorothiazide (Losartan-Hctz 100-12.5 mg T PO SCH (09:00)
[2024-07-14 12:00] VITALS: BP 133/68; PULSE 65; RESP 18; TEMP 98.5
[2024-07-14] MEDS: MAGNESIUM 2GM PREMIX 50ML 50 ML IV PRN (13:52)
[2024-07-14] MEDS ORDERED: SPIR25TA6 PO (14:43)
[2024-07-15] MEDS ORDERED: levoTHYROxine 50 MCG TABLET PO SCH (06:30)
[2024-07-15] MEDS ORDERED: SPIRONOLACTONE 25 MG TAB PO SCH (09:00)
== END 2024-07-14 17:00 | disposition home or self-care (01) | DRG 432 ==
LOC: EDH 12:00 → EDHIP 17:45 → 3AH 07-12 12:00
PROVIDERS: ADMIT Internal Medicine; ATTEND Internal Medicine
DX: K74.60 Unspecified cirrhosis of liver (principal); G93.41 Metabolic encephalopathy; K72.00 Acute and subacute hepatic failure without coma; C22.0 Liver cell carcinoma; B17.9 Acute viral hepatitis, unspecified; E72.20 Disorder of urea cycle metabolism, unspecified; N30.00 Acute cystitis without hematuria; K72.10 Chronic hepatic failure without coma; K76.82 Hepatic encephalopathy; E87.6 Hypokalemia; D69.6 Thrombocytopenia, unspecified; D64.9 Anemia, unspecified; K80.20 Calculus of gallbladder without cholecystitis without obstruction; E88.09 Other disorders of plasma-protein metabolism, not elsewhere classified; I10 Essential (primary) hypertension; E78.5 Hyperlipidemia, unspecified; E11.65 Type 2 diabetes mellitus with hyperglycemia; Z91.199 Patient's noncompliance with other medical treatment and regimen due to unspecified reason; Z85.05 Personal history of malignant neoplasm of liver; Z51.5 Encounter for palliative care; Z79.899 Other long term (current) drug therapy
CPT/HCPCS: 36415; 36600; 70450; 74177; 74181; 76705; 80053; 80074; 80076; 80305; 81001; 82140; 82435; 82803; 82947; 83036; 83605; 83690; 83735; 84100; 84132; 84145; 84295; 84443; 84484; 85014; 85018; 85025; 85610; 85730; 86140; 87040; 93005; 99291; G0378; G0481; J2470; J2543; J3475; J3480; J7030; Q9967; A4222; A4223; S8037

== ENCOUNTER → 2025-07-27 | Outpatient (CLI) | payer OTHER, MEDICARE ==
[~2025-07-27] MED LIST changes: +SPIR25TA6 PO
[2025-07-27 11:42] LABS: ASPARTATE AMINOTRANSFERASE 58.0 U/L (10-37); CREATININE 1.0 mg/dL (0.5-1.0); GLOMERULAR FILTR. RATE CALC 61.0 mL/min (>90); GLUCOSE,RANDOM 117.0 mg/dL (70-105); SODIUM SERUM 144.0 mmol/L (136-145); TOTAL PROTEIN, SERUM 7.0 g/dL (6.0-8.3); UREA NITROGEN, BLOOD 23.0 mg/dL (7-18)
== END | disposition home or self-care (01) ==
LOC: LAB 10:41
PROVIDERS: ATTEND Internal Medicine Gastroenterology
DX: R93.2 Abnormal findings on diagnostic imaging of liver and biliary tract (principal)
CPT/HCPCS: 36415; 80053

== ENCOUNTER → 2025-07-28 | Outpatient (CLI) | payer OTHER, MEDICARE ==
[~2025-07-28] MED LIST changes: +IOHEXOL-350 75 ML VIAL IV ONE
--- NOTE | 2025-07-29 10:59 | HMCIMG ---
EXAM: CT Abdomen with and without IV contrast CLINICAL HISTORY: Abnormal findings on diagnostic imaging of liver and biliary tract TECHNIQUE: Axial computed tomography images of the abdomen with and without intravenous contrast. CONTRAST: with and without intravenous contrast. COMPARISON: Study dated 03/09/2024 FINDINGS: LUNG BASES: The lung bases appear clear. No pleural effusions are seen. LIVER: The prominent caudate lobe of the liver and widened interlobar fissure, and the mild surface irregularity, consistent with cirrhosis. There is a 1.6 x 1.4 cm nodule anteriorly in the left lobe of the liver which demonstrates subtle arterial hyperenhancement (image 17 series 3) and is isodense on the portal venous and delayed images (image 17 series 5 and image 17 series 12). This is indeterminate and further evaluation with MRI is recommended. A few non-enhancing hypodense areas in both lobes of the liver suggest a simple hepatic cysts, the largest in the right lobe of the liver measures approximately 4 x 3.8 cm GALLBLADDER AND BILE DUCTS: The gallbladder appears within normal limits. No radioopaque gallstones are seen. No biliary ductal dilatation is evident. PANCREAS: Unremarkable. SPLEEN: Unremarkable. ADRENAL GLANDS: Unremarkable. KIDNEYS, URETERS, AND BLADDER: The kidneys appear within normal limits. There is no hydronephrosis or hydroureter. No urinary calculi are seen. STOMACH AND BOWEL: Unremarkable appearance of the stomach. No evidence of bowel obstruction. No evidence suggesting enteritis or colitis. Diverticula in the second part of the duodenum measure approximately 3 x 2 cm APPENDIX: No evidence of acute appendicitis on CT examination. PERITONEUM: No free fluid. No free air. LYMPH NODES: No lymphadenopathy is evident. REPRODUCTIVE: Unremarkable as visualized. VASCULATURE: No evidence of abdominal aortic aneurysm. BONES: No aggressive appearing osseous lesion. No acute osseous pathology evident. IMPRESSION: 1. Cirrhotic liver with an indeterminate nodule in the left lobe. Further evaluation with MRI is recommended. 2. Multiple simple hepatic cysts, largest measuring 4 x 3.8 cm in the right lobe. 3. Duodenal diverticulum in the second part, measuring approximately 3 x 2 cm. /Carli
== END | disposition home or self-care (01) ==
LOC: RAH 09:06
PROVIDERS: ATTEND Internal Medicine Gastroenterology
DX: K57.10 Diverticulosis of small intestine without perforation or abscess without bleeding (principal); K74.60 Unspecified cirrhosis of liver; R93.2 Abnormal findings on diagnostic imaging of liver and biliary tract
CPT/HCPCS: 74170; Q9967

== ENCOUNTER → 2025-09-21 | Outpatient (CLI) | payer OTHER, MEDICARE ==
[~2025-09-21] MED LIST changes: +GADOTERATE MEGLUMINE 10 MMOL/20 ML VIAL IV ONE; -IOHEXOL-350 75 ML VIAL IV ONE
--- NOTE | 2025-09-22 01:02 | HMCIMG ---
STUDY: MR Abdomen with and without Intravenous Contrast. HISTORY: R93.2 Abnormal findings on diagnostic imaging of liver and biliary tract. Known cirrhosis with prior indeterminate hepatic nodule and prior right-lobe liver abscess. Follow-up evaluation of hepatic parenchyma, cystic lesions, and biliary tree. TECHNIQUE: Multisequence, multiplanar magnetic resonance imaging of the abdomen performed before and after intravenous contrast administration. Series acquired: 3 - COR SSFSE ARC - TR: 738.5 - TE: 92.5 - ET: 1.0 - Thk: 5.0 4 - AX SSFSE BH ARC - TR: 676.8 - TE: 87.6 - ET: 1.0 - Thk: 5.0 5 - AX 3D DUALECHO BH - TR: 6.5 - TE: 2.1 - ET: 1.0 - Thk: 4.4 7 - AX T2 FRFSE FATSAT SISI ARC - TR: 22157.0 - TE: 106.5 - ET: 18.0 - Thk: 4.0 8 - AX DWI B=500 FB - TR: 3400.0 - TE: 59.0 - ET: 1.0 - Thk: 6.0 11 - G+ COR LAVA ARC - TR: 4.3 - TE: 2.0 - ET: 1.0 - Thk: 4.4 900???905 - AX LAVA DYN 5 PHASE (pre-contrast and multiphase post-contrast dynamic series) 906 - FT: PH1/AX LAVA DYN 5 PHASE - TR: 4.5 - TE: 1.9 - ET: 1.0 - Thk: 20.0 CONTRAST: 14 cc Clariscan administered intravenously. COMPARISON: MRCP (abdomen without contrast, cholangiopancreatography) dated 07/13/2024. 07/28 19:39 CT - CT ABDOMEN W/WO 3 PHASE FINDINGS: LOWER THORAX: Visualized lung bases demonstrate chronic interstitial changes in both lower lobes without focal consolidation or pleural effusion. Cardiomegaly is noted on limited [id number] cardiac imaging. LIVER: The liver is cirrhotic with nodular contour and altered parenchymal signal compatible with chronic liver disease. Multiple intrahepatic cystic lesions are present, including unilocular and multilocular simple-appearing hepatic cysts; the largest cyst in the right lobe measures approximately 4.0 ??? 3.6 cm, stable in size compared with the prior examination. No new suspicious arterially enhancing hepatic nodule or washout lesion is identified to suggest overt hepatocellular carcinoma on the current multiphase study. Interval complete resolution of the previously described right-lobe liver abscess measuring approximately 7.0 ??? 6.5 cm is demonstrated, with no residual collection or perihepatic fluid. No perihepatic or perisplenic collection is currently seen, and there is no significant ascites. GALLBLADDER AND BILE DUCTS: The gallbladder is present without definite gallstones, wall thickening, or pericholecystic fluid. The common bile duct is dilated, measuring up to approximately 1.1 cm in diameter. Intrahepatic bile ducts are not significantly dilated. No discrete intraluminal filling defect is identified on the supplied sequences; correlation with prior MRCP and clinical context is advised for assessment of any prior obstruction. PANCREAS: The pancreas is normal in overall size and contour. 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 The main pancreatic duct caliber is within normal limits. SPLEEN: The spleen is normal in size and signal intensity. No focal splenic lesion or perisplenic collection is seen. ADRENALS: A left adrenal nodule measuring approximately 2.0 ??? 1.1 cm is again seen, stable in size compared with the prior study. Signal characteristics are compatible with a benign adrenal incidentaloma in the absence of suspicious features. The right adrenal gland is unremarkable. KIDNEYS: Both kidneys are normal in size with preserved corticomedullary differentiation. Multiple small cortical cysts are present in both kidneys, measuring less than 1 cm, consistent with simple cortical cysts. An exophytic cortical hemorrhagic cyst is present at the lower pole of the left kidney, measuring approximately 1.0 ??? 1.0 cm, demonstrating internal blood products without solid enhancing nodule. No hydronephrosis or suspicious enhancing renal mass is identified. STOMACH AND BOWEL: The stomach is partially distended without focal mass or abnormal mural enhancement on this limited evaluation. No focal small bowel wall thickening or obstruction is seen. A duodenal diverticulum in the second portion of the duodenum,mentioned in prior CT couldnt be appreciated. No surrounding inflammatory change is present. Colonic evaluation is limited but without evident acute mural thickening or obstruction. LYMPH NODES: No pathologically enlarged abdominal or retroperitoneal lymph nodes are identified. VASCULATURE: The abdominal aorta is normal in caliber without aneurysm. Hepatic and portal veins are patent on the available sequences. No definite intra-abdominal variceal hemorrhage or thrombosis is demonstrated, though subtle portal hypertension-related collaterals may be present in the setting of cirrhosis. PERITONEUM AND ABDOMINAL WALL: No free intraperitoneal fluid or loculated collection is seen. Previously reported abdominal wall edema and generalized inflammatory changes have resolved. No significant abdominal wall hernia is noted on the provided sequences. IMPRESSION: * Cirrhotic liver with multiple intrahepatic simple-appearing cystic lesions, largest measuring approximately 4.0 ??? 3.6 cm in the right lobe, stable in size compared with prior imaging; no new suspicious arterially enhancing hepatic nodule or washout lesion is identified to suggest hepatocellular carcinoma on the current study. Prior MRCP-correlated right-lobe liver abscess (approximately 7.0 ??? 6.5 cm) has completely resolved, along with previously described hepatomegaly, perihepatic and perisplenic collections, bilateral minimal pleural effusions, abdominal wall edema, and systemic inflammatory response, which are no longer present on this examination. * Common bile duct dilatation up to approximately 1.1 cm without definite intraluminal filling defect on this study;stable since prior correlate with clinical/laboratory parameters for evidence of prior or intermittent obstruction. 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 * Bilateral small renal cortical cysts and a 1.0 cm exophytic hemorrhagic cortical cyst at the left lower pole, without suspicious enhancing renal mass. * Stable left adrenal nodule measuring approximately 2.0 ??? 1.1 cm, with imaging features compatible with a benign adrenal incidentaloma. * Chronic interstitial changes at the lung bases and cardiomegaly are again noted in the limited visualized portions of the thorax. /[place]
== END | disposition home or self-care (01) ==
LOC: CANSCHCLI → RAH 08:12
PROVIDERS: ATTEND Internal Medicine Gastroenterology
DX: N28.1 Cyst of kidney, acquired (principal); E27.8 Other specified disorders of adrenal gland; K74.60 Unspecified cirrhosis of liver; I51.7 Cardiomegaly; J84.89 Other specified interstitial pulmonary diseases; R93.2 Abnormal findings on diagnostic imaging of liver and biliary tract
CPT/HCPCS: 74183; A9575